=== PATIENT | female | born 1945 | race Caucasian/White ===

== ENCOUNTER 2017-09-17 13:46 | Emergency (ER) | payer MEDICARE ==
[2017-09-17 13:46] VITALS: BMI 29.2
[2017-09-17 13:59] VITALS: PULSE 62; TEMP 97.5; O2SAT 97
--- NOTE | 2017-09-17 14:33 | C.PDOC ---
History Of Present Illness 72 y/o female presents to the ER complaining of high blood pressure. Patient reports that she checked her blood pressure at home in the morning and it was very high. Patient also reports that she had swelling in her legs yesterday.Patient reports that she was feeling dizzy but she is not currently experiencing any dizziness.Patient reports that she has trouble breathing for the past one week and is currently experiencing shortness of breath. Time Seen by Provider: 09/17/17 14:06 Chief Complaint (Nursing): Dizziness/Lightheaded Past Medical History Vital Signs: Last Vital Signs Temp 97.5 F L 09/17/17 13:57 Pulse 62 09/17/17 13:57 Resp 18 09/17/17 13:57 BP 166/79 H 09/17/17 13:57 Pulse Ox 97 09/17/17 13:57 - Medical History PMH: Asthma (NEVER HAD AN ATTACK), Diabetes, HTN, Hypercholesterolemia, Osteoporosis Denies: Chronic Kidney Disease Surgical History: Cholecystectomy - [facility] Procedures COLONOSCOPY (06/25/14) ESOPHAGOGASTRODUODENOSCOPY [EGD] W/CLOSED BIOPSY (06/11/14) - Social History Hx Alcohol Use: No Hx Substance Use: No - Immunization History Hx Tetanus Toxoid Vaccination: No Hx Influenza Vaccination: Yes Hx Pneumococcal Vaccination: No ED Course And Treatment O2 Sat by Pulse Oximetry: 97 Disposition - Disposition
--- NOTE | 2017-09-17 14:34 | C.PDOC ---
History Of Present Illness 72 y/o female, with history of hypertension, bought by ambulance to the ER for evaluation of high blood pressure. Patient reports that she checked her blood pressure at home in the morning and it was very high. Patient reports that she was feeling lightheaded earlier but she is not currently experiencing any dizziness. Currently, patient denies chest pain, dyspnea, fever, chills, vomiting, numbness, weakness, vision changes. Time Seen by Provider: 09/17/17 14:06 Chief Complaint (Nursing): Dizziness/Lightheaded History Per: Patient History/Exam Limitations: no limitations Onset/Duration Of Symptoms: Hrs Current Symptoms Are (Timing): Still Present Severity: Moderate Past Medical History Reviewed: Historical Data, Nursing Documentation, Vital Signs Vital Signs: Last Vital Signs Temp 97.5 F L 09/17/17 13:57 Pulse 62 09/17/17 13:57 Resp 18 09/17/17 13:57 BP 166/79 H 09/17/17 13:57 Pulse Ox 97 09/17/17 14:59 - Medical History PMH: Asthma (NEVER HAD AN ATTACK), Diabetes, HTN, Hypercholesterolemia, Osteoporosis Denies: Chronic Kidney Disease Surgical History: Cholecystectomy - [facility] Procedures COLONOSCOPY (06/25/14) ESOPHAGOGASTRODUODENOSCOPY [EGD] W/CLOSED BIOPSY (06/11/14) Family History: States: No Known Family Hx - Social History Hx Alcohol Use: No Hx Substance Use: No - Immunization History Hx Tetanus Toxoid Vaccination: No Hx Influenza Vaccination: Yes Hx Pneumococcal Vaccination: No Review Of Systems Except As Marked, All Systems Reviewed And Found Negative. Constitutional: Negative for: Fever, Chills Physical Exam - Physical Exam Additional Physical Exam Comments: Gen: No acute distress. Head: Normocephalic, atraumatic. Eyes: PERRL. ENT: Moist mucous membranes. Neck: Supple. Chest: No tenderness. CV: Regular rate. Radial pulses 2+ bilaterally. Resp: Clear to auscultation bilaterally. Abd: Soft. Nontender. Nondistended Extremities: No swelling or tenderness. Skin: No rash. Neuro: Alert, no focal deficit. ED Course And Treatment - Laboratory Results Result Diagrams: 09/17/17 14:31 09/17/17 14:31 O2 Sat by Pulse Oximetry: 97 Medical Decision Making Medical Decision Making: CXR Results HISTORY: COMPARISON: No prior. TECHNIQUE: Chest PA and lateral FINDINGS: LINES AND TUBES: None. LUNG AND PLEURA: The lungs are well inflated and clear. HEART AND MEDIASTINUM: The heart is not enlarged. The hilar and mediastinal contours are within normal limits. SKELETAL STRUCTURES: The bony structures are within normal limits for the patient's age. VISUALIZED UPPER ABDOMEN: Normal. OTHER FINDINGS: None. IMPRESSION: No active pulmonary disease. EKG NSR 60 bpm, no ST/T wave changes. Labs unremarkable. Patient with no symptoms and in no distress. Will discharge, f/u primary care, instructed to return to ED for chest pain, dyspnea, headache, vision change, numbness, or weakness. Disposition - Disposition Referrals: Jesus Trevizo [Medical Doctor] - Disposition: HOME/ ROUTINE Disposition Time: 15:29 Condition: STABLE Instructions: Chronic Hypertension (ED) Forms: [employer] (Luxembourgish) - Clinical Impression Clinical Impression: Asymptomatic hypertension - Scribe Statement The provider has reviewed the documentation as recorded by the Yojana Mccarthy Provider Attestation: All medical record entries made by the Abdiibe were at my direction and personally dictated by me. I have reviewed the chart and agree that the record accurately reflects my personal performance of the history, physical exam, medical decision making, and the department course for this patient. I have also personally directed, reviewed, and agree with the discharge instructions and disposition.
[2017-09-17 14:38] LABS: HEMATOCRIT 35.4 % (34.0-47.0); MEAN CELL VOLUME 77.3 fL (81.0-99.0); MEAN CORPUSCULAR HEMOGLOBIN 25.4 pg (27.0-31.0); MEAN CORPUSCULAR HGB CONC 32.9 g/dL (33.0-37.0); MEAN PLATELET VOLUME 8.7 fL (7.2-11.7); RED CELL DISTRIBUTION WIDTH 17.5 % (11.5-14.5); WHITE BLOOD COUNT 7.2 K/uL (4.8-10.8)
[2017-09-17 14:39] LABS: BASO # 0.1 K/uL (0.0-0.2); BASO % 1.1 % (0.0-2.0); EOS # 0.4 K/uL (0.0-0.7); EOS % 6.2 % (0.0-4.0); LYMPH # 2.9 K/uL (1.0-4.3); LYMPH % 40.4 % (20.0-40.0); MONO # 0.7 K/uL (0.0-0.8); MONO % 9.7 % (0.0-10.0)
[2017-09-17 14:54] LABS: ALB/GLOB RATIO 1.1 (1.0-2.1); ALKALINE PHOSPHATASE 91 U/L (38-126); ALT/SGPT 35 U/L (9-52); AST/SGOT 38 U/L (14-36); BILIRUBIN,TOTAL 0.6 mg/dL (0.2-1.3); BLOOD UREA NITROGEN 15 mg/dL (7-17); CALCIUM 8.3 mg/dl (8.6-10.4); CARBON DIOXIDE 31 mmol/L (22-30); CHLORIDE 99 mmol/L (98-107); GFR AFRICAN-AMERICAN > 60; GLUCOSE,RANDOM 72 mg/dL (65-105); POTASSIUM 3.7 mmol/L (3.6-5.2); SODIUM 134 mmol/L (132-148); TOTAL PROTEIN 7.1 g/dL (6.3-8.3)
[2017-09-17 15:49] VITALS: BP 145/72; RESP 20
--- NOTE | 2017-09-19 21:42 | CARD ---
APPROVED REPORT EKG Measurement Heart [id number] <Conclusion> Sinus bradycardia Otherwise normal ECG
== END 2017-09-17 15:48 | disposition home or self-care (01) ==
LOC: C.ER 13:46
DX: I10 Essential (primary) hypertension (principal); E78.00 Pure hypercholesterolemia, unspecified; E11.9 Type 2 diabetes mellitus without complications

== ENCOUNTER 2018-06-22 14:35 | Emergency (ER) | payer MEDICARE ==
[2018-06-22 14:36] VITALS: BMI 29.2
[2018-06-22 14:46] VITALS: O2SAT 97
--- NOTE | 2018-06-22 15:20 | C.PDOC ---
History Of Present Illness 73 year old female patient with hx of HTN, DM, HLD, Asthma, hyperthyroidism and CHF presents to the ER c/o cough for x1 week. Patient reports she went to her PMD Dr. Trevizo and was suggested to visit the ER if cough does not get better. Patient states she feels "needles in my lungs". Patient denies chest pain, no SOB, no abdominal pain, no fever, no chills, no diarrhea or constipation. Patient notes she is given levaquin for her cough and is compliant in taking all of her other medications. Time Seen by Provider: 06/22/18 14:53 Chief Complaint (Nursing): Cough, Cold, Congestion History Per: Patient History/Exam Limitations: no limitations Onset/Duration Of Symptoms: Days (x1 week) Current Symptoms Are (Timing): Still Present Past Medical History Reviewed: Historical Data, Nursing Documentation, Vital Signs Vital Signs: Last Vital Signs Temp 98.3 F 06/22/18 14:43 Pulse 70 06/22/18 14:43 Resp 16 06/22/18 14:43 BP 147/83 06/22/18 14:43 Pulse Ox 97 06/22/18 14:43 - Medical History PMH: Asthma (NEVER HAD AN ATTACK), Diabetes, HTN, Hypercholesterolemia, Osteoporosis Surgical History: Cholecystectomy - [facility] Procedures COLONOSCOPY (06/25/14) ESOPHAGOGASTRODUODENOSCOPY [EGD] W/CLOSED BIOPSY (06/11/14) Family History: States: No Known Family Hx - Social History Hx Alcohol Use: No Hx Substance Use: No - Immunization History Hx Tetanus Toxoid Vaccination: No Hx Influenza Vaccination: Yes Hx Pneumococcal Vaccination: No Review Of Systems Constitutional: Negative for: Fever, Chills Cardiovascular: Negative for: Chest Pain Respiratory: Positive for: Cough. Negative for: Shortness of Breath Gastrointestinal: Negative for: Abdominal Pain, Diarrhea, Constipation Physical Exam - Physical Exam Appears: Non-toxic, No Acute Distress Skin: Warm, Dry Head: Normacephalic Eye(s): bilateral: Normal Inspection, PERRL, EOMI Oral Mucosa: Moist Neck: Trachea Midline, Supple, Other (No meningeal signs- negative kernig's and brudzinskis) Chest: Symmetrical, No Deformity Cardiovascular: Rhythm Regular, No Friction Rub Respiratory: Normal Breath Sounds, No Rales, No Rhonchi, No Stridor, No Wheezing Gastrointestinal/Abdominal: Bowel Sounds (normal), Soft, No Tenderness, No Distention Extremity: Bilateral: Normal Color And Temperature Pulses: Left Dorsalis Pedis: Normal (2+), Right Dorsalis Pedis: Normal (2+) Neurological/Psych: Oriented x3, Normal Speech ED Course And Treatment - Laboratory Results Result Diagrams: 06/22/18 15:38 06/22/18 15:38 O2 Sat by Pulse Oximetry: 97 (RA) Pulse Ox Interpretation: Normal Medical Decision Making Medical Decision Makin yr old female w/ hx of htn, hld, dm2 p/w cough. Well appearing in NAD w/ clear lungs, started on levaquin by primary. x2 antibiotics. No SOB. Impression: cough / URI / Bronchitis vs PNA Plans: -- VBG -- blood work -- CXR 1700 called pts primary: office is closed. Xray w/ out consolidation labs unremarkable ambulating well around ED w/ good o2 sat. Pt in NAd clear for d/c home Disposition - Disposition Referrals: [facility] [Outside] Disposition: HOME/ ROUTINE Disposition Time: 17:02 Condition: GOOD Additional Instructions: continue your previous abx as directed by your Primary care doctor. Instructions: Upper Respiratory Infection (ED), Acute Bronchitis Forms: [employer] (T[place]isian) - Clinical Impression Clinical Impression: Bronchitis, Upper respiratory infection - Scribe Statement The provider has reviewed the documentation as recorded by the Scribsinan Lala Do Provider Attestation: All medical record entries made by the Scribe were at my direction and personall y dictated by me. I have reviewed the chart and agree that the record accurately reflects my personal performance of the history, physical exam, medical decision making, and the department course for this patient. I have also personally directed, reviewed, and agree with the discharge instructions and disposition.
[2018-06-22 15:39] LABS: VENOUS BLOOD GAS BASE EXCESS 2.8 mmol/L (0.0-2.0); VENOUS BLOOD GAS PCO2 40 mmHg (40-60); VENOUS BLOOD GAS PO2 19 mm/Hg (30-55); VENOUS BLOOD PH 7.44 (7.32-7.43)
[2018-06-22 15:43] LABS: BASO % 0.4 % (0.0-2.0); EOS # 0.2 K/uL (0.0-0.7); EOS % 1.5 % (0.0-4.0); HEMOGLOBIN 12.5 g/dL (11.0-16.0); LYMPH # 3.6 K/uL (1.0-4.3); LYMPH % 32.1 % (20.0-40.0); MEAN CORPUSCULAR HEMOGLOBIN 26.3 pg (27.0-31.0); MEAN CORPUSCULAR HGB CONC 32.7 g/dL (33.0-37.0); MEAN PLATELET VOLUME 9.4 fL (7.2-11.7); MONO # 1.1 K/uL (0.0-0.8); MONO % 9.7 % (0.0-10.0); NEUT # 6.3 K/uL (1.8-7.0); NEUT % 56.3 % (50.0-75.0); RBC 4.75 Mil/uL (3.80-5.20); RED CELL DISTRIBUTION WIDTH 16.7 % (11.5-14.5)
[2018-06-22 15:46] LABS: WHITE BLOOD COUNT 11.2 K/uL (4.8-10.8)
[2018-06-22 15:47] LABS: MEAN CELL VOLUME 80.4 fL (81.0-99.0)
[2018-06-22 15:54] LABS: ALB/GLOB RATIO 1.2 (1.0-2.1); ALBUMIN 4.2 g/dL (3.5-5.0); ALT/SGPT 40 U/L (9-52); AST/SGOT 29 U/L (14-36); BLOOD UREA NITROGEN 15 mg/dL (7-17); CALCIUM 9.6 mg/dl (8.6-10.4); GFR NON-AFRICAN AMERICAN > 60
[2018-06-22 16:02] LABS: B-TYPE NATRIURETIC PEPTIDE 65.3 pg/mL (0-900)
--- NOTE | 2018-06-22 16:46 | RAD ---
Date of service: 06/22/2018 HISTORY: Cough. COMPARISON: Comparison made with prior study 09/17/2017 TECHNIQUE: Chest PA and lateral FINDINGS: LUNGS: There may be collapse/atelectasis medial segment right middle lobe however infiltrate not excluded. Additionally, there also mild bibasilar atelectatic changes as well. PLEURA: No significant pleural effusion identified. No pneumothorax apparent. CARDIOVASCULAR: Marked cardiomegaly. OSSEOUS STRUCTURES: No significant abnormalities. VISUALIZED UPPER ABDOMEN: Normal. OTHER FINDINGS: None. IMPRESSION: Marked cardiomegaly There may be collapse/atelectasis medial segment right middle lobe however infiltrate not excluded. Additionally, there also mild bibasilar atelectatic changes as well.
[2018-06-22 17:08] VITALS: BP 151/74; PULSE 49; RESP 18; TEMP 97.9
== END 2018-06-22 17:14 | disposition home or self-care (01) ==
LOC: C.ER 14:35
DX: J06.9 Acute upper respiratory infection, unspecified (principal); J40 Bronchitis, not specified as acute or chronic; E11.9 Type 2 diabetes mellitus without complications; E78.00 Pure hypercholesterolemia, unspecified; I10 Essential (primary) hypertension